=== PATIENT | female | born 1980 | race Two or more races ===

== ENCOUNTER 2020-10-26 08:59 | Outpatient (REF) | payer MEDICAID, OTHER, SELFPAY ==
--- NOTE | 2020-10-26 09:03 | EMG_ITS ---
Bilateral median and ulnar motor and sensory studies were performed. Bilateral radial sensory studies were performed and paraspinal muscles were tested with a needle. IMPRESSION: Lyko-lv-nyzalegl bilateral median neuropathy across carpal tunnel. MD JOHN Soliz/EL / [id number]
== END 2020-10-26 09:00 | disposition home or self-care (01) ==
LOC: HO.NEURO 08:59
PROVIDERS: PCP Internal Medicine Geriatric Medicine; Visit Provider Emergency Medicine
DX: M79.642 Pain in left hand (principal); M79.641 Pain in right hand; G56.03 Carpal tunnel syndrome, bilateral upper limbs
CPT/HCPCS: 95860; 95886; 95911

== ENCOUNTER → 2020-11-13 10:26 | Outpatient (BNVA) | payer OTHER, SELFPAY | PROVIDERS: PCP Internal Medicine Geriatric Medicine; Visit Provider Physician Assistant | DX: Z76.89 Persons encountering health services in other specified circumstances (principal) ==

== ENCOUNTER → 2020-11-14 08:08 | Outpatient (BNVA) | payer OTHER, SELFPAY | PROVIDERS: PCP Internal Medicine Geriatric Medicine; Visit Provider Physician Assistant | DX: Z76.89 Persons encountering health services in other specified circumstances (principal) ==

== ENCOUNTER 2020-11-15 | Outpatient (REF) | payer OTHER, SELFPAY | END 2020-11-15 00:01 | LOC: CF | PROVIDERS: PCP Internal Medicine Geriatric Medicine; Visit Provider Orthopaedic Surgery | DX: G56.03 Carpal tunnel syndrome, bilateral upper limbs (principal) | CPT/HCPCS: 99202 ==

== ENCOUNTER 2020-12-15 10:26 | Outpatient (REF) | payer MEDICAID, OTHER, SELFPAY ==
--- NOTE | 2020-12-15 11:45 | US_ITS ---
EXAMINATION: MM DIAGNOSTIC DIGITAL BREAST TOMOSYNTHESIS, BILATERAL US DIAGNOSTIC ULTRASOUND BREAST, BILATERAL CLINICAL INFORMATION: Probable bilateral benign calcifications for follow-up surveillance. Patient notes bilateral pain upper breasts. No palpable mass. Due for yearly. The lifetime risk of breast cancer based on the Tyrer-Cuzick Model is 9%. COMPARISON: Mammography: 01/03/2020, 06/29/2019, 01/08/2019, 12/30/2018 (BI-RADS 0). TECHNIQUE: Digital breast tomosynthesis is performed in both the craniocaudal and mediolateral oblique views along with computer-aided detection (CAD). Synthesized 2D images are generated from the tomosynthesis. Additional bilateral magnification CC and bilateral magnification ML views are obtained. Ultrasound ultrasound of each breast is targeted to the upper breast in the area of patient symptoms. Trace scale imaging and color Doppler are performed without and with harmonics. FINDINGS: The breasts are heterogeneously dense, which may obscure small masses (ACR BI-RADS breast composition Category c). Breast tissue composition borders on extremely dense. Scattered bilateral calcifications are stable from prior diagnostic exams and now considered benign. There are no increasing calcifications or interval pleomorphic types or ductal distribution. There is no interval mass or architectural abnormality. No skin thickening or coarsening of the Manan's ligaments. The axilla are unremarkable. Ultrasound bilateral breasts targeted to the upper breast in the area of clinical symptoms demonstrates no cystic or solid mass. There is no architectural abnormality, focal duct ectasia, or edema tracking in soft tissue planes. No skin thickening. Results are discussed with the patient at time of visit with assistance of an cleaning porter. Mammography follow-up interval discussed with patient. Patient prefers to remain on schedule with next mammogram in one year. US/US breast LT limited IMPRESSION: 1. No mammographic evidence of malignancy or inflammatory changes. 2. Bilateral breast calcifications from prior diagnostic studies, now considered benign. 3. Unremarkable bilateral targeted breast ultrasound. ASSESSMENT: BI-RADS 2: Benign RECOMMENDATION: 1. Patient's bilateral breast pain should be managed based on the clinical impression. 2. Otherwise, routine annual screening mammography. This patient's information was entered into a reminder system with a target due date for their next mammogram.
--- NOTE | 2020-12-15 11:55 | US_ITS ---
EXAMINATION: MM DIAGNOSTIC DIGITAL BREAST TOMOSYNTHESIS, BILATERAL US DIAGNOSTIC ULTRASOUND BREAST, BILATERAL CLINICAL INFORMATION: Probable bilateral benign calcifications for follow-up surveillance. Patient notes bilateral pain upper breasts. No palpable mass. Due for yearly. The lifetime risk of breast cancer based on the Tyrer-Cuzick Model is 9%. COMPARISON: Mammography: 01/03/2020, 06/29/2019, 01/08/2019, 12/30/2018 (BI-RADS 0). TECHNIQUE: Digital breast tomosynthesis is performed in both the craniocaudal and mediolateral oblique views along with computer-aided detection (CAD). Synthesized 2D images are generated from the tomosynthesis. Additional bilateral magnification CC and bilateral magnification ML views are obtained. Ultrasound ultrasound of each breast is targeted to the upper breast in the area of patient symptoms. Trace scale imaging and color Doppler are performed without and with harmonics. FINDINGS: The breasts are heterogeneously dense, which may obscure small masses (ACR BI-RADS breast composition Category c). Breast tissue composition borders on extremely dense. Scattered bilateral calcifications are stable from prior diagnostic exams and now considered benign. There are no increasing calcifications or interval pleomorphic types or ductal distribution. There is no interval mass or architectural abnormality. No skin thickening or coarsening of the Manan's ligaments. The axilla are unremarkable. Ultrasound bilateral breasts targeted to the upper breast in the area of clinical symptoms demonstrates no cystic or solid mass. There is no architectural abnormality, focal duct ectasia, or edema tracking in soft tissue planes. No skin thickening. Results are discussed with the patient at time of visit with assistance of an foreign language interpreter. Mammography follow-up interval discussed with patient. Patient prefers to remain on schedule with next mammogram in one year. US/US breast RT limited IMPRESSION: 1. No mammographic evidence of malignancy or inflammatory changes. 2. Bilateral breast calcifications from prior diagnostic studies, now considered benign. 3. Unremarkable bilateral targeted breast ultrasound. ASSESSMENT: BI-RADS 2: Benign RECOMMENDATION: 1. Patient's bilateral breast pain should be managed based on the clinical impression. 2. Otherwise, routine annual screening mammography. This patient's information was entered into a reminder system with a target due date for their next mammogram.
--- NOTE | 2020-12-15 12:30 | MM_ITS ---
EXAMINATION: MM DIAGNOSTIC DIGITAL BREAST TOMOSYNTHESIS, BILATERAL US DIAGNOSTIC ULTRASOUND BREAST, BILATERAL CLINICAL INFORMATION: Probable bilateral benign calcifications for follow-up surveillance. Patient notes bilateral pain upper breasts. No palpable mass. Due for yearly. The lifetime risk of breast cancer based on the Tyrer-Cuzick Model is 9%. COMPARISON: Mammography: 01/03/2020, 06/29/2019, 01/08/2019, 12/30/2018 (BI-RADS 0). TECHNIQUE: Digital breast tomosynthesis is performed in both the craniocaudal and mediolateral oblique views along with computer-aided detection (CAD). Synthesized 2D images are generated from the tomosynthesis. Additional bilateral magnification CC and bilateral magnification ML views are obtained. Ultrasound ultrasound of each breast is targeted to the upper breast in the area of patient symptoms. Trace scale imaging and color Doppler are performed without and with harmonics. FINDINGS: The breasts are heterogeneously dense, which may obscure small masses (ACR BI-RADS breast composition Category c). Breast tissue composition borders on extremely dense. Scattered bilateral calcifications are stable from prior diagnostic exams and now considered benign. There are no increasing calcifications or interval pleomorphic types or ductal distribution. There is no interval mass or architectural abnormality. No skin thickening or coarsening of the Manan's ligaments. The axilla are unremarkable. Ultrasound bilateral breasts targeted to the upper breast in the area of clinical symptoms demonstrates no cystic or solid mass. There is no architectural abnormality, focal duct ectasia, or edema tracking in soft tissue planes. No skin thickening. Results are discussed with the patient at time of visit with assistance of an vocational case manager. Mammography follow-up interval discussed with patient. Patient prefers to remain on schedule with next mammogram in one year. MM/MM tomosynthesis diagnostic BI IMPRESSION: 1. No mammographic evidence of malignancy or inflammatory changes. 2. Bilateral breast calcifications from prior diagnostic studies, now considered benign. 3. Unremarkable bilateral targeted breast ultrasound. ASSESSMENT: BI-RADS 2: Benign RECOMMENDATION: 1. Patient's bilateral breast pain should be managed based on the clinical impression. 2. Otherwise, routine annual screening mammography. This patient's information was entered into a reminder system with a target due date for their next mammogram.
== END 2020-12-15 10:27 | disposition home or self-care (01) ==
LOC: HO.MAMMO 10:26
PROVIDERS: PCP Internal Medicine Geriatric Medicine; Visit Provider Emergency Medicine
DX: N64.4 Mastodynia (principal); R92.1 Mammographic calcification found on diagnostic imaging of breast
CPT/HCPCS: 76642; 77062; 77066

== ENCOUNTER 2021-10-04 11:13 | Outpatient (REF) | payer OTHER, SELFPAY ==
[2021-10-05 14:34] LABS: CT PCR NOT DETECTED (Not Detect.); NG PCR NOT DETECTED (Not Detect.)
[2021-10-06 12:02] LABS: BV Int Neg Control Negative (Negative); BV Int Pos Control Positive (Positive)
== END 2021-10-04 11:14 | disposition home or self-care (01) ==
LOC: HO.LAB 11:13
PROVIDERS: Visit Provider Advanced Practice Midwife
DX: Z01.419 Encounter for gynecological examination (general) (routine) without abnormal findings (principal); Z20.2 Contact with and (suspected) exposure to infections with a predominantly sexual mode of transmission
CPT/HCPCS: 87480; 87491; 87510; 87591; 87660

== ENCOUNTER 2021-12-11 14:09 | Outpatient (REF) | payer OTHER, SELFPAY ==
--- NOTE | ~2021-12-11 | MM_ITS ---
EXAMINATION: MM SCREENING DIGITAL BREAST TOMOSYNTHESIS, BILATERAL CLINICAL INFORMATION: Screening. Asymptomatic. The lifetime risk of breast cancer based on the Tyrer-Cuzick Model is 12%. COMPARISON: Mammography: 12/15/2020, 02/01/2020, 06/29/2019, 01/08/2019, 12/30/2018, bilateral breast ultrasound 12/15/2020. TECHNIQUE: Digital breast tomosynthesis is performed in both the craniocaudal and mediolateral oblique views along with computer-aided detection (CAD). Synthesized 2D images are generated from the tomosynthesis. FINDINGS: The breasts are heterogeneously dense, which may obscure small masses (ACR BI-RADS breast composition Category c). There are no significant masses, abnormal calcifications, or other abnormalities. Breast tissue composition borders on extremely dense. There is no developing density or significant changes. MM/MM tomosynthesis screening BI IMPRESSION: No mammographic evidence of malignancy. ASSESSMENT: BI-RADS 1: Negative RECOMMENDATION: Routine annual mammography screening. This patient's information was entered into a reminder system with a target due date for their next mammogram.
== END 2021-12-11 14:10 | disposition home or self-care (01) ==
LOC: HO.MAMMO 14:09
PROVIDERS: Visit Provider Internal Medicine Geriatric Medicine
DX: Z12.31 Encounter for screening mammogram for malignant neoplasm of breast (principal)
CPT/HCPCS: 77063; 77067

== ENCOUNTER 2022-05-01 13:12 | Outpatient (REF) | payer OTHER, SELFPAY ==
--- NOTE | ~2022-05-01 | US_ITS ---
EXAMINATION: US PELVIS CLINICAL INFORMATION: Excessive and frequent menstruation. COMPARISON: None. TECHNIQUE: Ultrasound of the pelvis is performed using both transabdominal and transvaginal transducers along with Doppler. Transvaginal imaging is performed due to inadequate visualization transabdominally. FINDINGS: Uterus: The uterus is anteverted, anteflexed and measures 8.4 cm in length, 3.7 cm in AP and 3.9 cm in transverse dimension. The double wall endometrial thickness is 1.2 cm. The uterus is smooth in contour and has normal myometrial echogenicity. There is a hypoechoic lesion in the fundal uterus measuring 1.8 x 2.1 x 2.0 cm suggestive of a small fibroid. Adnexa: Both ovaries are visualized. There is normal color flow to the adnexa. There is no ovarian torsion. There is no pelvic ascites or fluid collection. Right ovary measures 4.0 x 2.0 x 2.9 cm and volume 12.1 mL. There is hypoechoic lesion right ovary measuring 2.0 x 1.0 x 1.5 cm suggestive of corpus luteal cyst versus artifact. Left ovary measures 2.4 x 1.3 x 1.7 cm and volume 2.8 mL. Previously left ovary measured 3.2 x 2.0 x 2.6 cm. There is no free fluid in the cul-de-sac. US/US pelvic and transvaginal IMPRESSION: Small fundal uterine fibroid. Likely small corpus luteal cyst right ovary versus artifact. No free fluid in cul-de-sac.
== END 2022-05-01 13:13 | disposition home or self-care (01) ==
LOC: HO.US 13:12
PROVIDERS: PCP Internal Medicine Geriatric Medicine; Visit Provider Advanced Practice Midwife
DX: N92.1 Excessive and frequent menstruation with irregular cycle (principal)
CPT/HCPCS: 76830; 76856

== ENCOUNTER 2022-12-17 13:30 | Outpatient (REF) | payer OTHER, SELFPAY ==
--- NOTE | ~2022-12-17 | MM_ITS ---
EXAMINATION: MM SCREENING DIGITAL BREAST TOMOSYNTHESIS, BILATERAL CLINICAL INFORMATION: Screening. Asymptomatic. The lifetime risk of breast cancer based on the Tyrer-Cuzick Model is 4%. COMPARISON: Mammography: December 11, 2021 and studies dating back to March 01, 2016 TECHNIQUE: Digital breast tomosynthesis is performed in both the craniocaudal and mediolateral oblique views along with computer-aided detection (CAD). Synthesized 2D images are generated from the tomosynthesis. Additional bilateral exaggerated craniocaudal views performed. FINDINGS: The breasts are extremely dense, which lowers the sensitivity of mammography (ACR BI-RADS breast composition Category d). There are no significant masses, abnormal calcifications, or other abnormalities. MM/MM tomosynthesis screening BI IMPRESSION: No significant changes from prior exam. ASSESSMENT: BI-RADS 1: Negative RECOMMENDATION: Routine annual mammography screening. This patient's information was entered into a reminder system with a target due date for their next mammogram.
== END 2022-12-17 13:31 | disposition home or self-care (01) ==
LOC: HO.MAMMO 13:30
PROVIDERS: PCP Internal Medicine Geriatric Medicine; Visit Provider Internal Medicine Geriatric Medicine
DX: Z12.31 Encounter for screening mammogram for malignant neoplasm of breast (principal)
CPT/HCPCS: 77063; 77067

== ENCOUNTER 2024-01-24 09:53 | Outpatient (REF) | payer OTHER, SELFPAY ==
--- NOTE | ~2024-01-24 | MM_ITS ---
EXAMINATION: MM SCREENING DIGITAL BREAST TOMOSYNTHESIS, BILATERAL CLINICAL INFORMATION: Screening. Asymptomatic. The patient reports a benign left excisional biopsy to place 2010. COMPARISON: Mammography: This study is compared with prior exams dating back to 2019. TECHNIQUE: Digital breast tomosynthesis is performed in both the craniocaudal and mediolateral oblique views along with computer-aided detection (CAD). Synthesized 2D images are generated from the tomosynthesis. FINDINGS: The breasts are extremely dense, which lowers the sensitivity of mammography (ACR BI-RADS breast composition Category d). In the superior aspect of the left breast, at a middle depth, there is an asymmetry which warrants additional mammographic and targeted sonographic imaging. When the patient returns for the additional mammographic imaging, skin of the right breast should be closely inspected from the scars. The patient does give a history of contralateral left breast surgery, it may be that the prior surgery has occurred in the right breast and not the left breast. In the left breast, there are no significant masses, abnormal calcifications, or other abnormalities. MM/MM tomosynthesis screening BI IMPRESSION: Asymmetry of the right breast warrants additional mammographic and targeted sonographic evaluation. When the patient returns for the additional mammographic imaging, skin of the right breast should be closely inspected from the scars. The patient does give a history of contralateral left breast surgery, it may be that the prior surgery has occurred in the right breast and not the left breast. Nonetheless, all additional imaging of the right breast should occur with any scars found marked. No mammographic signs of malignancy left breast. ASSESSMENT: BI-RADS BI-RADS 0 - Incomplete: Needs additional Imaging. RECOMMENDATION: 1. Additional views of the right breast 2. Targeted ultrasound if warranted after review of the additional views. 3. Radiology department staff will contact the patient for additional imaging. Additional Imaging required This examination should not preclude the clinical evaluation of a suspicious palpable abnormality. This patient's information was entered into a reminder system with a target due date for their next mammogram.
== END 2024-01-24 09:54 | disposition home or self-care (01) ==
LOC: HO.MAMMO 09:53
PROVIDERS: Visit Provider Internal Medicine Geriatric Medicine
DX: Z12.31 Encounter for screening mammogram for malignant neoplasm of breast (principal)
CPT/HCPCS: 77063; 77067

== ENCOUNTER → 2024-01-24 10:30 | Outpatient (BNV) | payer OTHER, SELFPAY | PROVIDERS: Visit Provider Radiology Diagnostic Radiology | DX: Z12.31 Encounter for screening mammogram for malignant neoplasm of breast (principal) | CPT/HCPCS: 77063; 77067 ==

== ENCOUNTER 2024-02-02 12:48 | Outpatient (RCR) | payer OTHER, SELFPAY ==
--- NOTE | 2024-03-10 14:11 | MHC.SP.ADU ---
Referring provider: Dr. Salud Wilson Reason for Referral: dx: hoarseness Type of Treatment: 11891 Evaluation of Speech Sound Production Date of Plan of Treatment: 02/02/24 Onset of Symptoms/Illness: 02/02/24 Date Treatment Started: 11/24/22 Medical Diagnosis: Hoarseness Primary Speech Language Diagnosis: R49.0 Dysphonia History Logan is a Kiswahili speaking 43 year old female referred for speech therapy by Salud Wilson MD, with [facility] with a diagnosis of hoarseness. She was seen for today?s evaluation on 02/02/2024 by a bilingual Speech-Language Pathologist with additional assistance from an biological science technician fish. The biological science technician fish was present during the entire evaluation, providing support during the patient interview, questionnaires, and throughout testing. Logan reports that she has been seen by an ENT, Dr. Salud Wilson. In September 2023, the ENT visualized nodules which have disappeared on a more recent ENT instrumental examination. She presents to today?s evaluation with concern for a hoarse and raspy vocal quality. She reports that she typically speaks in a loud voice and she often feels like she is ?forcing? her voice. She presents with a moderately hoarse voice during the evaluation, which she reports as her typical vocal quality. She reports that there are times when her vocal quality worsens, for example when she is tired. Logan reports no concern for her voice affecting her socially. Logan reports a history of voice therapy with a Speech-Language Pathologist. Over 20 years ago she was seen for voice therapy following removal of her tonsils. Medical History: Respiratory Needs: Room Air Patient Orientation: Alert & Oriented x 4 Social History: Past Speech Language Therapy: Voice therapy following removal of tonsils approximately 20 years ago Swallowing History: Dysphagia Specific: No reported swallowing concerns Reported Speech, Language, Cognition difficulties: Voice Assessment: Logan?s vocal quality as well as her perception of her voice was analyzed during today?s evaluation through measures including patient interview, questionnaires, conversation samples, and vocal exercises. Voice-Related Quality of Life (V-RQOL) Measure The V-RQOL is a questionnaire completed by an individual to analyze their outlook on their voice problem as it relates to their daily activities and overall quality of life. There are ten statements to which an individual subscribes a score to each from 1 to 5 (1=not a problem, 5=?as bad as it can be?) to describe how much of a problem that particular statement has been within the past two weeks. Logan responded 1 to the vast majority of statements. She responded 3 (moderate) to ?I have trouble speaking loudly or being heard in noisy situations? and 2 (a small amount) to ?I run out of air and need to take frequent breaths when talking.? Logan scored 13 on the questionnaire, which is considered ?excellent? and indicates minimal negative effect on one?s quality of life. Voice Handicap Index (VHI) The VHI is a questionnaire in which an individual answers questions regarding functional, emotional, and physical components of their voice to provide insight into their perception of their own voice. Functional questions provide insight into the impact of their voice on daily activities; i.e. ?I speak with friends, neighbors, or relatives less often because of my voice.? Emotional questions provide insight into the individual?s feelings regarding their voice; i.e. ?My voice problem upsets me.? Physical questions provide insight into the individual?s physical discomfort and characteristics of voice; i.e. ?I use a great deal of effort to speak.? Responses to questions include never, almost never, sometimes, almost always, and always. Logan?s Z-score value was computed to be +0.48. A score of 0 to +1.00 is interpreted as ?no significant impact on aspects of daily life.? S:Z Ratio The S:Z Ratio is not diagnostic of laryngeal pathology: it is merely a measurement of one?s ability to sustain the voiceless sound [S] in comparison to sustaining the voiced sound [Z] cognate. For the majority of people with no difficulties affecting their vocal folds are typically able to sustain both the voiceless [S] and voiced [Z] sounds for approximately the same length of time during the S:Z task, thus producing a 1:1 ratio. 95% of people who have some difficulty affecting the movement or vibration of their vocal folds have an S:Z ratio of greater than 1.40. Conversely, a S:Z ratio of less than 1.0 suggests functional dysphonia in the absence of laryngeal pathology (Evans & Morgan, 1981). Across three trials, Logan produced the following on the S:Z prolongation averages: S = 9.53 seconds Z = 9.54 seconds Ratio: 1.00 Norms: Mean S= 17.7 seconds (Standard deviation = 7.6 seconds); Mean Z=18.6 seconds (Standard deviation = 7.0 seconds) (Evans & Morgan 1981 in Anthony et. al. 1987) Logan?s S:Z ratio is deemed to be within normal limits. However, the length of her [S] and [Z] sounds are shorter than normative data of mixed ages and genders. Maximum Phonation Time (MPT): [a] prolongation: range: 5.92-9.75 seconds, mean = 7.22 seconds When prompted to produce a prolonged ?AHH? ([a] prolongation), [place] presented with several moments of strained vocal quality and presented with worsening of hoarseness following vowel prolongation. Compared to normative data of adult females, Logan?s maximum phonation time of [a] (?AHH?) is over 3X less. [place] produced a maximum phonation time of 7.22 seconds as compared to the average time of 25.7 seconds (Anthony et. al., 1987). Impressions and Recommendations SUMMARY: Logan presents with a moderately hoarse voice during today?s evaluation and shortened phonation length across tasks. [place]?s prolongations of various sounds are shorter as compared to normative data; this may be due to a decrease in respiratory efficiency. It is recommended that Mey[place] attend voice therapy to target vocal hygiene education, hoarse vocal quality, and respiration efficiency. Impact on Daily Function/Activity Limitations: Daily Activities: Moderate Interpersonal Interactions: Moderate Employment: Mild Prognosis for Improvement: Good Recommendation for Speech Therapy: Outpatient Speech Therapy 1x/week x 12 weeks. The following goals are recommended: - [place] will independently recall 3+ environmental modifications to improve vocal hygiene. -When given a scenario, Logan will independently discriminate between healthy vocal use and vocal misuse/abuse with 80% accuracy -[place] will sustain vowel prolongation for 15 seconds in 80% of opportunities -Logan will accurately demonstrate diaphragmatic breathing in 100% of trials with moderate cueing. Patient Education Completed: Yes Patient/Caregiver Education: Described Results of Evaluation Patient expressed understanding of evaluation Patient requires further education on strategies Maintenance Advisor Clinican/Clinical Fellow: No Supervisory Statement: N/A Speech Language Pathologist: Maura Mullins M.A., CCC-MECHANICAL STRIPER
== END 2024-08-26 08:45 | disposition still patient (30) ==
LOC: HO.SH 12:48
PROVIDERS: Visit Provider Otolaryngology
DX: R49.0 Dysphonia (principal)

== ENCOUNTER 2024-02-11 14:23 | Outpatient (REF) | payer OTHER, SELFPAY ==
--- NOTE | ~2024-02-11 | MM_ITS ---
EXAMINATION: MM DIAGNOSTIC DIGITAL BREAST TOMOSYNTHESIS, RIGHT CLINICAL INFORMATION: Follow-up for asymmetry in the mid right breast seen only on MLO projection. Patient has history of excisional biopsies in both breasts. COMPARISON: Mammography: 01/24/2024, 12/17/2022, 12/11/2021, 12/15/2020. TECHNIQUE: Digital breast tomosynthesis is performed. 2D images are generated from the tomosynthesis. The following views are obtained: Full-field right mediolateral view was obtained, spot compression right MLO and cc views. FINDINGS: The breasts are extremely dense, which lowers the sensitivity of mammography (ACR BI-RADS breast composition Category d). Additional views demonstrate no persistent area of architectural distortion or asymmetry. Previously seen findings appear likely related to expected mild scarring from prior excisional biopsy in this region. No masses, abnormal calcifications, or persistent regions of architectural distortion. MM/MM tomosynthesis added views R IMPRESSION: No persistent abnormality suspicious for malignancy. Benign findings. Recommend the patient resume routine annual screening mammography to include both breasts. ASSESSMENT: BI-RADS BI-RADS 2 - Benign Findings RECOMMENDATION: 1 year F/U Results were provided to the patient at time of visit by the technologist. This patient's information was entered into a reminder system with a target due date for their next mammogram.
== END 2024-02-11 14:24 | disposition home or self-care (01) ==
LOC: HO.MAMMO 14:23
PROVIDERS: PCP Internal Medicine Geriatric Medicine; Visit Provider Internal Medicine Geriatric Medicine
DX: N64.89 Other specified disorders of breast (principal)
CPT/HCPCS: 77061; 77065

== ENCOUNTER → 2024-02-11 14:30 | Outpatient (BNV) | payer OTHER, SELFPAY | PROVIDERS: PCP Internal Medicine Geriatric Medicine; Visit Provider Radiology Diagnostic Radiology | DX: R92.8 Other abnormal and inconclusive findings on diagnostic imaging of breast (principal) | CPT/HCPCS: 77061; 77065 ==

== ENCOUNTER 2024-03-04 07:48 | Outpatient (REF) | payer OTHER, SELFPAY ==
[2024-03-11 23:29] LABS: HPV mRNA E6/E7 rflx Not Detected (Not Detected)
== END 2024-03-04 07:49 | disposition home or self-care (01) ==
LOC: HO.LNP 07:48
PROVIDERS: Visit Provider Advanced Practice Midwife
DX: Z12.4 Encounter for screening for malignant neoplasm of cervix (principal); Z11.51 Encounter for screening for human papillomavirus (HPV)
CPT/HCPCS: 87624; 88142

== ENCOUNTER 2024-06-23 12:10 | Outpatient (REF) | payer OTHER, SELFPAY ==
[2024-06-23 13:07] LABS: MANUAL DIFF FLAG NO
[2024-06-23 13:27] LABS: Basophils Percent Auto 0.6 % (0-2); Eosinophils Absolute Auto 0.1 X10*3/uL (0.0-0.4); Eosinophils Percent Auto 1.3 % (0-4); Hematocrit 38.7 % (37.0-47.0); Hemoglobin 12.2 g/dl (12.0-16.0); Imm Gran Abs Auto 0.02 X10*3/uL (0.00-0.03); Imm Gran Pct Auto 0.3 % (0.0-0.4); Lymphocytes Absolute Auto 2.7 X10*3/uL (1.2-4.9); Lymphocytes Percent Auto 39.6 % (20-40); Mean Corpuscular HGB Conc 31.5 g/dl (31.0-35.0); Mean Corpuscular Hemoglobin 27.4 pg (27.0-33.0); Mean Corpuscular Volume 86.8 fL (80.0-98.0); Mean Platelet Volume 10.6 fL (9.4-12.3); Monocytes Absolute Auto 0.5 X10*3/uL (0.1-1.2); Monocytes Percent Auto 7.6 % (2-11); Neutrophils Absolute Auto 3.4 x10*3/uL (2.0-8.3); Neutrophils Percent Auto 50.6 % (45-73); Platelet Count 281 X10*3/uL (160-400); Red Blood Count 4.46 X10*6/uL (4.20-5.50); Red Cell Distribution Width 13.6 % (11.0-16.0); White Blood Count 6.7 X10*3/uL (4.8-10.8)
[2024-06-26 00:39] LABS: TS Negative Control Passed; TS Panel A 0; TS Panel B 1; TS Positive Control Passed; TSpotTB Negative (Negative)
== END 2024-06-23 12:11 | disposition home or self-care (01) ==
LOC: HO.HHCL 12:10
PROVIDERS: Visit Provider Internal Medicine Geriatric Medicine
DX: R04.0 Epistaxis (principal); Z11.1 Encounter for screening for respiratory tuberculosis
CPT/HCPCS: 36415; 85025; 86481

== ENCOUNTER → 2025-01-28 10:00 | Outpatient (BNV) | payer OTHER, SELFPAY | PROVIDERS: PCP Internal Medicine Geriatric Medicine; Visit Provider Internal Medicine | DX: Z12.31 Encounter for screening mammogram for malignant neoplasm of breast (principal) | CPT/HCPCS: 77063; 77067 ==

== ENCOUNTER 2025-01-28 10:03 | Outpatient (REF) | payer OTHER, SELFPAY ==
--- OUTSIDE RECORDS SUMMARY | 2025-01-28 11:12 | XMS_ITS | Encounter Summary ---
Author Organization [employer] Address [address] [facility] 7[address] [place] [address] Care Team Providers Care Technical Operator Name Role Phone Name, Eleazar LEON Primary Care Provider Encounter Details Date Type Department Care Team ([facility] st Contact Info) Description 09/26/2023 Orders Only [facility] [address] [place], [place] [id number] Cyn Ugarte FNP [address] [place] [address] Social History Tobacco Use Types Packs/Day Years Used Date Smoking Tobacco: Never Smokeless Tobacco: Never Alcohol Use Standard Drinks/Week Comments Defer 0 (1 standard drink = 0.6 oz pur e alcohol) Depression Answer Date Recorded Patient Health Questionnaire-9 Score 5 03/31/2023 Housing Stability Answer Date Recorded What is your housing situation today? I have chelita fajardo 09/12/[address] you li ve. Do you have problems with any of the following? None of the above 09/12/2023 Food Insecurity Answer Date Recorded Within the past 12 months, y ou worried that your food would run out before you got money to buy more: Never True 09/12/2023 Within the past 12 months,th e food you bought just didn't last and you didn't have enough money to get more: Never True Transportation Answer Date Recorded In the past 12 months, has l ack of transportation kept you from medical appts, meetings, work or from getting things needed for daily living? No 09/12/2023 Utilities Answer Date Recorded In the past 12 months, has t he electric, gas, oil or water company threatened to shut off services in your home? Yes 08/31/2023 Depression Answer Date Recorded Patient Health Questionnaire-2 Score 2 03/31/2023 Comments Unknown Sex and Gender Information Value Date Recorded Sex Assigned at Female 09/23/2022 10:29 AM EDT Legal Sex Female 10:29 AM EDT Gender Identity Female 09/23/2022 10:29 AM EDT Sexual Orientation Lesbian or Swanson 09/23/2022 10 :29 AM EDT documented as of this encounter Plan of Treatment Upcoming Encounters Date Type Department Care Team (Late st Contact Info) Description 01/28/2025 11:15 AM EST Office Visit [facility] [address] [place] [phone] NameEleazar MD [address] [place] [address] Arrived 03/07/2025 9:15 AM EDT Office Visit [address] [address] Dinora Blandon CNM [address] [place] [phone] documented as of this encounter Visit Diagnoses Not on filedocumented in this encounter Additional Health Concerns Assessment Noted Time PHQ-9 Depression Total Score: 5 03/31/20 23 11:26 AM EDT documented as of this encounter Care Teams Technical Operator Relationship Specialty Start Date End Date Eleazar Cee MD [address] [place] [phone] PCP - General Family Medicine 11/24/18 documented as of this encounter
--- OUTSIDE RECORDS SUMMARY | 2025-01-28 11:12 | XMS_ITS | Encounter Summary ---
Author Organization [employer] [facility] Address [address] [place] [address] 7 [place] [address] Care Team Providers Care Publishing Editor Name Role Phone Name, Eleazar LEON Primary Care Provider Encounter Details Date Type Department Care Team (Latest Contact Info) Description 12/30/2018 Abstract [facility] CONVERSION[facility] Dental, Provider, DDS Social History Tobacco Use Types Packs/Day Years Used Date Smoking Tobacco: Never Assessed Comments Unknown Sex and Gender Information Value Date Recorded Sex Assigned at Female 09/23/2022 10:29 AM EDT Legal Sex Female 10:29 AM EDT Gender Identity Female 09/23/2022 10:29 AM EDT Sexual Orientation Lesbian or Swanson 09/23/2022 10 :29 AM EDT documented as of this encounter Plan of Treatment Upcoming Encounters Date Type Department Care Team ( st Contact Info) Description 01/28/2025 11:15 AM EST Office Visit [facility] [address] [place] [phone] Name, MD Eleazar [address] [place] [phone] Arrived 03/07/2025 9:15 AM EDT Office Visit [facility] [address] [place] [address] Dinora Blandon [address] [address] documented as of this encounter Visit Diagnoses Not on filedocumented in this encounter Care Teams Publishing Editor Relationship Specialty Start Date End Date Name, MD Eleazar [address] [place] [address] PCP - General Family Medicine 11/24/18 documented as of this encounter
--- OUTSIDE RECORDS SUMMARY | 2025-01-28 11:12 | XMS_ITS | Encounter Summary ---
Author Organization [employer] Address [address] [place] [address] 7 [place] [address] Care Team Providers Care Auto Seat Cover Installer Name Role Phone Name, Eleazar LEON Primary Care Provider [phone] Reason for Visit * Reason Onset Date Comments Medication Question 03/31/2023 Encounter Details Date Type Department Care Team ([facility] st Contact Info) Description 03/31/2023 Telephone [facility] [address] [place] [address] [phone] Name, MD Eleazar [address] [place] [address] Medication Question Social History Tobacco Use Types Packs/Day Years Used Date Smoking Tobacco: Never Smokeless Tobacco: Never Alcohol Use Standard Drinks/Week Comments Defer 0 (1 standard drink = 0.6 oz pur e alcohol) Depression Answer Date Recorded Patient Health Questionnaire-9 Score 5 03/31/2023 Depression Answer Date Recorded Patient Health Questionnaire-2 Score 2 03/31/2023 Comments Unknown Sex and Gender Information Value Date Recorded Sex Assigned at Female 09/23/2022 10:29 AM EDT Legal Sex Female 10:29 AM EDT Gender Identity Female 09/23/2022 10:29 AM EDT Sexual Orientation Lesbian or Swanson 09/23/2022 10 :29 AM EDT COVID-19 Exposure Response Date Recorded In the last 10 days, have yo u been in contact with someone who was confirmed or suspected to have Coronavirus/COVID-19? No / Unsure 03/31/2023 11:04 AM EDT documented as of this encounter Miscellaneous Notes * Telephone Encounter - Concha Mckinnon RN - 03/31/2023 12:41 PM EDT Placed call to pharmacy regarding PCP message. Pharmacy given verbal to change to 28-0.8mg. * Telephone Encounter - Carley Ady Miller - 03/31/2023 11:49 AM EDT Tc from [facility] requesting a call to verify if medication ( multivitamin () 27-0.8 MG tablet ) can be switched to 28-0.8 mg due to pharmacy not having the 27-0.8 mg script previously sent over. Please contact Pharmacy at [phone] documented in this encounter Plan of Treatment Upcoming Encounters Date Type Department Care Team (Late st Contact Info) Description 01/28/2025 11:15 AM EST Office Visit [address] [address] Name, MD Eleazar [address] [place] [address] Arrived 03/07/2025 9:15 AM EDT Office Visit [address] [address] Dinora Blandon CNM [address] [place] [address] documented as of this encounter Visit Diagnoses Not on filedocumented in this encounter Additional Health Concerns Assessment Noted Time PHQ-9 Depression Total Score: 5 03/31/20 23 11:26 AM EDT documented as of this encounter Care Teams Auto Seat Cover Installer Relationship Specialty Start Date End Date Eleazar Cee MD [address] [place] [phone] PCP - General Family Medicine 11/24/18 documented as of this encounter
--- OUTSIDE RECORDS SUMMARY | 2025-01-28 11:12 | XMS_ITS | Encounter Summary ---
Author Organization [address] [facility] Address [address] [place] [address] 7 [place] [address] Care Team Providers Care Longitudinal Float Operator Name Role Phone Name, Eleazar LEON Primary Care Provider [phone] Encounter Details Date Type Department Care Team (Latest Contact Info) Description 01/03/2020 Abstract [facility] CONVERSIONS Dental, Provider, DDS Social History Tobacco [...] Description 01/28/2025 11:15 AM EST Office Visit [facility] [address] [place] [phone] Name, MD Eleazar [address] [place] [address] Arrived 03/07/2025 9:15 AM EDT Office Visit [facility] [address] [place] [address] Dinora Blandon [address] [address] documented as of this encounter Visit Diagnoses Not on filedocumented in this encounter Care Teams Longitudinal Float Operator Relationship Specialty Start Date End Date Name, MD Eleazar [address] [place] [address] PCP - General Family Medicine 11/24/18 documented as of this encounter
--- OUTSIDE RECORDS SUMMARY | 2025-01-28 11:12 | XMS_ITS | Clinical Summary ---
Author Organization [employer] Address [address] [place] [address] 7 [place] [address] Care Team Providers Care Doctor Of Chiropractic Name Role Phone Name, Eleazar LEON Primary Care Provider [phone] Allergies No known active allergies Medications * This document contains information received from the source organization and may not represent a complete record from that organization. multivitamin () 27-0.8 MG tablet Take 1 tablet by mouth in the morning. 30 tablet 3 Active Additional Information Patient not taking.Reported on 06/23/2024 cetirizine (ZyrTEC) 10 MG tablet Take 1 tablet (10 mg) by mouth in the morning. 30 tablet 4 03/10/20 25 Active omeprazole OTC (PriLOSEC OTC) 20 MG EC tablet Take 1 tablet (20 mg) by mouth before breakfast. Do not crush, chew, or split. 30 tablet 4 06/09/20 25 Active Active Problems Problem Noted Date Diagnosed Date Bereavement 03/04/2024 Assessment & Plan (03/10/2024 1:58 PM EDT): During IBH Consult Logan presenting with depressed mood, loss of interests/pleasure , changes in sleep difficulty falling asleep, trouble concentrating, thoughts of worthlessness or guilt, fatigue/loss of energy, inappropriate guilt , hopelessness and excessive worry/anxiety, difficulty controlling worry, easily fatigued, difficulty concentrating/Mind going blank , and irritability, extreme sadness when talking about her mom who 8 months ago; for a period of 18+ mo, for all symptoms in the context of family issues and relationship issues. Logan identified her long-term relationship as trigger for symptoms. Unhealthy communication patterns and lack of social supports also exacerbates symptoms. PLAN: (check all that apply) Continue with current services (defined as services in the past 12 months) . Patient is currently engaged in services for OP individual therapy with [facility]. Class 1 obesity 03/31/2023 Major depressive disorder 01/08/2023 Assessment & Plan (03/31/2024 1:02 PM EDT): During IBH Consult [place] presenting with depressed mood, loss of interests/pleasure , changes in sleep restless, unsatisfying sleep, change in appetite or weight overeating, psychomotor retardation, trouble concentrating, thoughts of worthlessness or guilt, fatigue/loss of energy, inappropriate guilt , hopelessness, worthlessness , difficulty concentrating; for a period of 24+ mo, in the context of family issues and relationship issues. Logan identified her long-term relationship as trigger for symptoms. Communication issues with significant other and lack of social supports also exacerbates symptoms. PLAN: (check all that apply) Continue with current services (defined as services in the past 12 months) . Pt will re-engaged with therapist and psych provider through [facility]. Pt was unhappy with previous therapist. Assessment & Plan (03/10/2024 1:58 PM EDT): During IBH Consult Logan presenting with depressed mood, loss of interests/pleasure , changes in sleep difficulty falling asleep, trouble concentrating, thoughts of worthlessness or guilt, fatigue/loss of energy, inappropriate guilt , hopelessness and excessive worry/anxiety, difficulty controlling worry, easily fatigued, difficulty concentrating/Mind going blank , and irritability, extreme sadness when talking about her mom who 8 months ago; for a period of 18+ mo, for all symptoms in the context of family issues and relationship issues. Logan identified her long-term relationship as trigger for symptoms. Unhealthy communication patterns and lack of social supports also exacerbates symptoms. PLAN: (check all that apply) Continue with current services (defined as services in the past 12 months) . Patient is currently engaged in services for OP individual therapy with [facility]. Insomnia 01/08/2023 Seasonal allergic rhinitis 05/07/2019 Irregular periods 05/07/2019 Resolved Problems Problem Noted Date Diagnosed Date Resolved Date Pain of breast 02/10/2019 01/08/2023 Encounters Date Type Department Care Team Description 01/28/2025 Travel 01/21/2025 Travel 01/06/2025 Travel from Last 3 Months Immunizations Name Administration Dates Next Due Influenza injectable quadriv alent IIV4 with preservative 02/01/2020 Influenza injectable quadriv alent preservative free 09/11/2023,09/15/2021,08/24/2020,2018,02/22/2016 Tdap 12/08/2018 Family History Medical History Relation Name Comments Hypertension Brother Hero Hypertension Father Sterling Verdin Arthritis Mother Melva brittny Asthma Mother Melva brittny Diabetes Mother Melva brittny Hypertension Mother Melva brittny Hypertension Sister Solsirys Relation Name Status Comments Brother Hero Father Sterling Verdin Mother Melva brittny Sister Solsirys Social History Tobacco Use Types Packs/Day Years Used Date Smoking Tobacco: Never Smokeless Tobacco: Never Tobacco Cessation:Counseling Given: Not Answered Comments:Fumo huka ocasionalmente Alcohol Use Standard Drinks/Week Comments Not Currently 0 (1 standard drink = 0.6 oz pur e alcohol) Social me johan un trago Depression Answer Date Recorded Patient Health Questionnaire-9 Score 12 03/31/2024 Patient Health Questionnaire-9 Score 12 03/31/2024 Last PHQ-9: Questionnaire Data Not on file 0 03/31/2024 Housing Stability Answer Date Recorded What is your housing situation today? I have chelita fajardo 06/23/[address] you li ve. Do you have problems with any of the following? None of the above 06/23/2024 Food Insecurity Answer Date Recorded Within the past 12 months, y ou worried that your food would run out before you got money to buy more: Never True 06/23/2024 Within the past 12 months,th e food you bought just didn't last and you didn't have enough money to get more: Never True Transportation Answer Date Recorded In the past 12 months, has l ack of transportation kept you from medical appts, meetings, work or from getting things needed for daily living? No 06/23/2024 Utilities Answer Date Recorded In the past 12 months, has t he electric, gas, oil or water company threatened to shut off services in your home? No 06/23/2024 Depression Answer Date Recorded Patient Health Questionnaire-2 Score 4 03/31/2024 Internet Access Answer Date Recorded Internet Access Q1 No 07/26/2024 Internet Access Q2 I do not want or need it 12/2023 Comments No Sex and Gender Information Value Date Recorded Sex Assigned at Female 09/23/2022 10:29 AM EDT Legal Sex Female 10:29 AM EDT Gender Identity Female 09/23/2022 10:29 AM EDT Sexual Orientation Lesbian or Swanson 09/23/2022 10 :29 AM EDT Last Filed Vital Signs Vital Sign Reading Time Taken Comments Blood Pressure 135/90 09/15/2024 11:49 AM EDT right arm 144/88 Pulse 87 09/15/2024 11:49 AM EDT Temperature 36.2 ??C (97.1 ??F) 06/23/2024 1 1:12 AM EDT Respiratory Rate 21 09/15/2024 11:4 9 AM EDT Oxygen Saturation 98% 09/15/2024 11: 49 AM EDT Inhaled Oxygen Concentration - - Weight 83 kg (183 lb) 09/15/2024 11:49 AM EDT Height 165.1 cm (5' 5 ) 06/23/2024 11:1 2 AM EDT Body Mass Index 30.45 06/23/2024 11:12 AM EDT Plan of Treatment Upcoming Encounters Date Type Department Care Team (Late st Contact Info) Description 01/28/2025 11:15 AM EST Office Visit [facility] [address] [place] [phone] Name, MD Eleazar [address] [place] [address] Arrived 03/07/2025 9:15 AM EDT Office Visit [facility] [address] [place] [phone] Michael Willoughby, FLORESITA [address] [place] [address] Health Maintenance Due Date Last Done Comments HIV Screening 1980 Hepatitis C Screening 2000 Hepatitis B Vaccines (1 of 3 - 19+ 3-dose series) 2001 COVID-19 Vaccine ( season) 2024 01/04/2022, 03/09/2021, 02/09/2021 Depression Monitoring (PHQ-9) 10/01/2024 03/31/2024, 03/31/2024 Family Planning (PISQ) 03/04/2025 03/04/2024 Depression Screening 03/31/2025 03/31/2024, 03/31/20 Alcohol/Substance Use Screening 06/23/2025 06/23/2024 SDOH Screening 06/23/2025 06/23/2024 Tobacco Screening 09/15/2025 09/15/2024 Mammogram 01/23/2026 01/24/2024, 11/25, 12/17/2022, Additional history exists Cervical Cancer Screening 03/04/2027 HPV/Cotest 03/04/2027 03/04/2024, 01/23, 01/21/2022, Additional history exists Pap Smear 03/04/2027 03/04/2024, 01/23, 01/21/2022 DTaP/Tdap/Td Vaccines (2 - Td or Tdap) 12/08/2028 12/08/2018 Zoster Vaccines (1 of 2) 2032 RSV Patients and Patients Aged 60 years or older (1 - 1-dose 75+ series) 2057 Influenza Vaccine Completed 09/01/2024, , 09/15/2021, Additional history exists HIB Vaccines Aged Out No longer eligi ble based on patient's age to complete this topic HPV Vaccines Aged Out No longer eligi ble based on patient's age to complete this topic Hepatitis A Vaccines Aged Out No long er eligible based on patient's age to complete this topic IPV Vaccines Aged Out No longer eligi ble based on patient's age to complete this topic Meningococcal Vaccine Aged Out No marshall tana eligible based on patient's age to complete this topic Pneumococcal Vaccine: Pediatrics (0 to 5 Years) and At-Risk Patients (6 to 49) Years) Aged Out No longer eligible based on patient's age to complete this topic RSV under 20 months Aged Out No longe r eligible based on patient's age to complete this topic Rotavirus Vaccines Aged Out No longer eligible based on patient's age to complete this topic Procedures Procedure Name Priority Date/Time Associated Diagnosis Comments HPV MRNA E6/E7 REFLEX TO HPV 16, 18/45 Routine 03/04/2024 2:03 PM EDT PAP SMEAR Routine 03/04/2024 2:03 PM EDT Cervical cancer screening BI MAMMOGRAM SCREENING TOMOSYNTHESIS BILATERAL Routine 01/24/2024 10:50 AM EST from Last 3 Months or Most Recently Relevant to Health Maintenance Results * HPV mRNA E6/E7 w/Reflex to HPV Genotypes 16, 18/45 (03/04/2024 2:03 PM EDT) HPV nRNA E6/E7 Not Detected Not Detected [facility] Comment:Methodology: Transcr iption-Mediated AmplificationThis assay detects E6/E7 viral messenger RNA (mRNA) from 14high-risk HPV types (16,18,31,33,35,39,45,51,52,56,58,59,66,68).Cervical sources are required for HPV testing.If a vaginal source from a patient who has had atotal hysterectomy with removal of cervix wassubmitted, please contact the testing laboratoryfor alternative testing options.For additional information, please refer [email or web address] [email or web address](This link if provided for information/educational purposes only.)THIS TEST WAS PERFORMED AT:[facility] [place] [phone] RAWLS MD HPV mRNA E6/E7 [facility] HPV 16 RNA [facility] HPV 18/45 RNA [facility] 03/04/2024 2:03 PM EDT 03/09/2024 12:00 PM EDT us Michael Willoughby CNM LAB CYTOLOGY ORDERABLES F inal Result [facility] [address] [place] [phone] * Pap Smear (03/04/2024 2:03 PM EDT) Swab Cervix uteri structure / Unknown 03/04/2024 2:03 PM EDT 03/09/2024 12:00 PM EDT Narrative [facility] - 03/22/2024 12:50 PM EDT ----- ------- Name: Logan Madison ? Age/Sex: 43/F ? : 1980 Unit#: [id number] ?? Attend Dr: MICHAEL WILLOUGHBY CNM ?Re03/04/24 ?Status: DEP REF ? Location: HO.LNP ?Disch: ? ----- ------- SPEC : [id number] ? RECD: 03/09/24-1200 ? STATUS: ??SOUT ? REQ NUM: [id number] ? VIKTOR: 03/04/24-1403 ? SUBM DR: MICHAEL WILLOUGHBY CNRadha ? ENTERED: ??03/09/24 ?SP TYPE: Pap Smr ?OTHR DR: ? ORDERED: ??Pap Smear ? Interpretation ?? Satisfactory for evaluation. ?? Negative for intraepithelial lesion or malignancy. ?HPV mRNA E6/E7: ?NOT DETECTED ? This assay detects E6/E7 viral messenger RNA (mRNA) from 14 high-risk HPV types (16, 18, ?? 31, 33, 35, 39, 45, 51, 52, 56, 58, 59, 66, 68) ?? HPV testing performed by [facility], [place], [place]. ??See reference laboratory ?? portion of the EMR for entire report. ?Clinical Information LMP: Unknown date Previous PAP test: Unknown date, Abnormal Other history: NIL/neg preceded by NIL/HPV pos ? Material Received ?? ThinPrep-Vaginal/Cervical ----- ------- Signed (signature on file) BRIAN Sanchez ([facility]) 03/22/24 1250 ? ----- ------- ? END OF REPORT ? us Michael Willoughby [facility] CYTOLOGY ORDERABLES F inal Result Performing Organization Address City/State/[facility] Co de Phone Number [facility] [address] [place] [address] [phone] * BI Mammogram Screening Tomosynthesis Bilateral (01/24/2024 10:50 AM EST) Anatomical Region Laterality Modality Breast Bilateral Mammography 01/24/2024 10:5 0 AM EST Narrative 02/05/2024 6:09 AM EDT ? [facility] ? [address] [facility] ?[place] [address] ? Mammography Report ? Signed ? Patient: Verdin Brittny,Logan ?MR#: ?? [id number] ? : 1980 ?Acct:[id number] ? Age/Sex: 43 / F ?ADM Date: 03/02/24 ? Loc: HO.MAMMO ? Attending Dr: Eleazar Cee MD ? Ordering Physician: Eleazar Cee MD ?Results: 0Incomplet ?? e: Needs Additional Imaging Evaluation ? Date of Service: 01/24/24 ?Follow Up: Additional Imagi ?? ng ? Procedure(s): MM tomosynthesis screening BI ?? Accession Number(s): [id number] ? cc: Jaye,Eleazar LEON ? EXAMINATION: ?? MM SCREENING DIGITAL BREAST TOMOSYNTHESIS, BILATERAL ? CLINICAL INFORMATION: ? Screening. Asymptomatic. ? The patient reports a benign left excisional biopsy to place 2010. ? COMPARISON: ?? Mammography: This study is compared with prior exams dating back to ?? 2018. ? TECHNIQUE: ?? Digital breast tomosynthesis is performed in both the craniocaudal and ?? mediolateral oblique views along with computer-aided detection (CAD). ?? Synthesized 2D images are generated from the tomosynthesis. ? FINDINGS: ?? The breasts are extremely dense, which lowers the sensitivity of ?? mammography (ACR BI-RADS breast composition Category d). ? In the superior aspect of the left breast, at a middle depth, there is ?? an asymmetry which warrants additional mammographic and targeted ?? sonographic imaging. ?? When the patient returns for the additional mammographic imaging, skin ?? of the right breast should be closely inspected from the scars. The ?? patient does give a history of contralateral left breast surgery, it ?? may be that the prior surgery has occurred in the right breast and not ?? the left breast. ? In the left breast, there are no significant masses, abnormal ?? calcifications, or other abnormalities. ? MM/MM tomosynthesis screening BI ?? IMPRESSION: ?? Asymmetry of the right breast warrants additional mammographic and ?? targeted sonographic evaluation. ?? When the patient returns for the additional mammographic imaging, ?? skin of the right breast should be closely inspected from the scars. ?? The patient does give a history of contralateral left breast surgery, ?? it may be that the prior surgery has occurred in the right breast and ?? not the left breast. Nonetheless, all additional imaging of the right ?? breast should occur with any scars found marked. ? No mammographic signs of malignancy left breast. ? ASSESSMENT: ? BI-RADS BI-RADS 0 - Incomplete: Needs additional Imaging. ? RECOMMENDATION: ?? 1. Additional views of the right breast ?? 2. Targeted ultrasound if warranted after review of the additional ?? views. ?? 3. Radiology department staff will contact the patient for additional ?? imaging. ? Additional Imaging required ? This examination should not preclude the clinical evaluation of a ?? suspicious palpable abnormality. ? This patient's information was entered into a reminder system with a ?? target due date for their next mammogram. ? Dictated By: ?Lindsay Contreras MD ? Signed By: ?<Electronically signed by Lindsay Contreras MD in OV> ? 02/05/24 0605 ? DD/ 1050 ? TD/TT: ? Labor Contractor: ? Procedure Note Ernestinacezar, Image - 02/05/2024 [place] [facility] [address] [place] [address] Mammography Report Signed Patient: Logan Madison#: [id number] : 1980Acct:[id number] Age/Sex: 43 / FADM Date: 01/24/24 Loc: JETT Attending Dr: Eleazar Cee MD Ordering Physician: Eleazar Ceeesults: 0Incomplet e: Needs Additional Imaging Evaluation Date of Service: 01/24/24Follow Up: Additional Imagi ng Procedure(s): MM tomosynthesis screening BI Accession Number(s): [id number] cc: Eleazar Cee MD EXAMINATION: MM SCREENING DIGITAL BREAST TOMOSYNTHESIS, BILATERAL CLINICAL INFORMATION: Screening. Asymptomatic. The patient reports a benign left excisional biopsy to place 2010. COMPARISON: Mammography: This study is compared with prior exams dating back to 2019. TECHNIQUE: Digital breast tomosynthesis is performed in both the craniocaudal and mediolateral oblique views along with computer-aided detection (CAD). Synthesized 2D images are generated from the tomosynthesis. FINDINGS: The breasts are extremely dense, which lowers the sensitivity of mammography (ACR BI-RADS breast composition Category d). In the superior aspect of the left breast, at a middle depth, there is an asymmetry which warrants additional mammographic and targeted sonographic imaging. When the patient returns for the additional mammographic imaging, skin of the right breast should be closely inspected from the scars. The patient does give a history of contralateral left breast surgery, it may be that the prior surgery has occurred in the right breast and not the left breast. In the left breast, there are no significant masses, abnormal calcifications, or other abnormalities. MM/MM tomosynthesis screening BI IMPRESSION: Asymmetry of the right breast warrants additional mammographic and targeted sonographic evaluation. When the patient returns for the additional mammographic imaging, skin of the right breast should be closely inspected from the scars. The patient does give a history of contralateral left breast surgery, it may be that the prior surgery has occurred in the right breast and not the left breast. Nonetheless, all additional imaging of the right breast should occur with any scars found marked. No mammographic signs of malignancy left breast. ASSESSMENT: BI-RADS BI-RADS 0 - Incomplete: Needs additional Imaging. RECOMMENDATION: 1. Additional views of the right breast 2. Targeted ultrasound if warranted after review of the additional views. 3. Radiology department staff will contact the patient for additional imaging. Additional Imaging required This examination should not preclude the clinical evaluation of a suspicious palpable abnormality. This patient's information was entered into a reminder system with a target due date for their next mammogram. Dictated By: Lindsay Contreras MD Signed By: <Electronically signed by Lindsay Contreras MD in OV> 02/05/24 0605 DD/ 1050 TD/TT: Labor Contractor: Eleazar Jaye AQUINO BI PROCEDURES Final Result from Last 3 Months or Most Recently Relevant to Health Maintenance Insurance , [address] [address] Care Teams Doctor Of Chiropractic Relationship Specialty Start Date End Date Name, MD Eleazar [address] [place] [phone] PCP - General Family Medicine 11/24/18
--- OUTSIDE RECORDS SUMMARY | 2025-01-28 11:12 | XMS_ITS | Encounter Summary ---
Author Organization [employer] Address [address] [place] [address] 7 [place] [address] Care Team Providers Care Residential Mortgage Underwriter Name Role Phone Name, Eleazar LEON Primary Care Provider [phone] Encounter Details Date Type Department Care Team (Late Contact Info) Description 04/22/2023 Orders Only [facility] [address] [place], [place] [phone] Talia Chandra LPN Social History Tobacco Use Types Packs/Day Years [...] Upcoming Encounters Date Type Department Care Team ([facility] Contact Info) Description 01/28/2025 11:15 AM EST Office Visit [facility] [address] [place] [address] [phone] NameEleazar MD [address] [place] [address] Arrived 03/07/2025 9:15 AM EDT Office Visit [facility] [address] [place], [place] [phone] Dinora Blandon CNM [address] [place] [address] documented as of this encounter Visit Diagnoses Not on filedocumented in this encounter Additional Health Concerns Assessment Noted Time PHQ-9 Depression Total Score: 5 03/31/20 23 11:26 AM EDT documented as of this encounter Care Teams Residential Mortgage Underwriter Relationship Specialty Start Date End Date Name, MD Eleazar [address] [place] [phone] PCP - General Family Medicine 11/24/18 documented as of this encounter
--- OUTSIDE RECORDS SUMMARY | 2025-01-28 11:12 | XMS_ITS | Encounter Summary ---
Author Organization [employer] Address [address] [place] [address] 7 [place] [address] Care Team Providers Care Access Database Developer Name Role Phone Name, Eleazar LEON Primary Care Provider [phone] Reason for Visit * Reason Onset Date Comments Call Back Request 02/17/2024 Encounter Details Date Type Department Care Team ([facility] st Contact Info) Description 02/17/2024 Telephone [facility] [address] [place] [address] [phone] Name, MD Eleazar [address] [place] [address] Call Back Request Social History Tobacco Use Types Packs/Day Years [...] encounter Miscellaneous Notes * Telephone Encounter - Aminah Burns - 02/17/2024 9:44 AM EDT Tc from pt requesting to speak with a nurse in regards to pelvic exam scheduled for tomorrow (02/17). Pt is on menstrual cycle and would like to know if appointment will need to be rescheduled. Please contact pt at [phone] documented in this encounter Plan of Treatment Upcoming Encounters Date Type Department Care Team (Late st Contact Info) Description 01/28/2025 11:15 AM EST Office Visit [facility] [address] [place] [phone] Eleazar Cee MD [address] [place] [phone] Arrived 03/07/2025 9:15 AM EDT Office Visit [facility] [address] [place] [phone] Dinora Blandon CNM [address] [place] [phone] documented as of this encounter Visit Diagnoses Not on filedocumented in this encounter Additional Health Concerns Assessment Noted Time PHQ-9 Depression Total Score: 5 03/31/20 23 11:26 AM EDT documented as of this encounter Care Teams Access Database Developer Relationship Specialty Start Date End Date Eleazar Cee MD [address] [place] [phone] PCP - General Family Medicine 11/24/18 documented as of this encounter
--- OUTSIDE RECORDS SUMMARY | 2025-01-28 11:12 | XMS_ITS | Encounter Summary ---
Author Organization [employer] Address [address] [place] [address] 7 [place] [address] Care Team Providers Care Environmental Coordinator Name Role Phone Name, Eleazar LEON Primary Care Provider [phone] Reason for Visit * Reason Onset Date Comments Call Back Request 09/24/2023 Encounter Details Date Type Department Care Team ([facility] st Contact Info) Description 09/24/2023 Telephone [facility] MEDICINE [address] [place] [address] [phone] Name, MD Eleazar [address] [place] [address] Call Back Request Social History Tobacco Use [...] encounter Miscellaneous Notes * Telephone Encounter - Bubba Zaman RN - 09/29/2023 9:27 AM EST T/C to [facility] pharmacy for below message, Pharmacist is asking for Which part of body pt. Has to apply. Where pt. Is going to apply? Due to insurance purpose. Please review and advise. * Telephone Encounter - Bubba Zaman RN - 09/26/2023 3:58 PM EDT T/C to Pharmacy for below message, pharmacy wants to know how many times pt. Has to apply Hydrocortisone 2.5 % cream. Please review and advise. * Telephone Encounter - Natalia Mcgraw - 09/26/2023 12:37 PM EDT Tc from Pharmacy requesting a call back in regards where and how many times... * Telephone Encounter - Bubba Zaman RN - 09/24/2023 1:56 PM EDT T/C to Pharmacy for below message, pharmacy wants to know how many times pt. Has to apply. Please review and advise. * Telephone Encounter - Natalia Mcgraw - 09/24/2023 11:07 AM EDT Tc from Pharmacy requesting a call back in regards clarification on use/dose on hydrocortisone 2.5 % cream Please call Pharmacy documented in this encounter Plan of Treatment Upcoming Encounters Date Type Department Care Team (Late st Contact Info) Description 01/28/2025 11:15 AM EST Office Visit [address] [address] Name, MD Eleazar [address] [place] [address] Arrived 03/07/2025 9:15 AM EDT Office Visit [address] [address] Dinora Blandon CNM [address] [place] [address] documented as of this encounter Visit Diagnoses Not on filedocumented in this encounter Additional Health Concerns Assessment Noted Time PHQ-9 Depression Total Score: 5 03/31/20 23 11:26 AM EDT documented as of this encounter Care Teams Environmental Coordinator Relationship Specialty Start Date End Date Name, MD Eleazar [address] [place] [address] PCP - General Family Medicine 11/24/18 documented as of this encounter
--- OUTSIDE RECORDS SUMMARY | 2025-01-28 11:13 | XMS_ITS | Encounter Summary ---
Author Organization [employer] Address [address] [place] [address] 7t [place] [address] Care Team Providers Care Diesel Powerplant Supervisor Name Role Phone Name, Eleazar LEON Primary Care Provider [phone] Encounter Details Date Type Department Care Team (Latest Contact Info) Description 01/21/2025 Travel Social History Tobacco Use Types Packs/Day Years Used Date Smoking Tobacco: Never Smokeless Tobacco: Never Comments:Fumo juliaka ocasional mente Alcohol Use Standard Drinks/Week Comments Not Currently [...] Description 01/28/2025 11:15 AM EST Office Visit [address] [address] NameEleazar MD [address] [place] [address] Arrived 03/07/2025 9:15 AM EDT Office Visit [address] [address] Dinora Blandon CNM [address] [place] [address] documented as of this encounter Visit Diagnoses Not on filedocumented in this encounter Additional Health Concerns Assessment Noted Time PHQ-9 Depression Total Score: 12 024 11:27 AM EDT documented as of this encounter Care Teams Diesel Powerplant Supervisor Relationship Specialty Start Date End Date Eleazar Cee MD [address] [place] [address] PCP - General Family Medicine 11/24/18 documented as of this encounter
--- OUTSIDE RECORDS SUMMARY | 2025-01-28 11:13 | XMS_ITS | Encounter Summary ---
Author Organization [employer] Address [address] [place] [address] 7t [place] [address] Care Team Providers Care Hooker Inspector Name Role Phone Name, Eleazar LEON Primary Care Provider [phone] Encounter Details Date Type Department Care Team (Latest Contact Info) Description 01/28/2025 Travel Social History Tobacco Use Types Packs/Day Years Used Date Smoking Tobacco: Never Smokeless Tobacco: Never Comments:Fumo huka ocasional mente Alcohol Use Standard Drinks/Week Comments [...] Description 01/28/2025 11:15 AM EST Office Visit [address] [address] NameEleazar MD [address] [place] [address] Arrived 03/07/2025 9:15 AM EDT Office Visit [address] [address] Dinora Blandon CNM [address] [place] [address] documented as of this encounter Visit Diagnoses Not on filedocumented in this encounter Additional Health Concerns Assessment Noted Time PHQ-9 Depression Total Score: 12 024 11:27 AM EDT documented as of this encounter Care Teams Hooker Inspector Relationship Specialty Start Date End Date Eleazar Cee MD [address] [place] [address] PCP - General Family Medicine 11/24/18 documented as of this encounter
--- OUTSIDE RECORDS SUMMARY | 2025-01-28 11:13 | XMS_ITS | Encounter Summary ---
Author Organization [employer] Address [address] [place] [address] 7t [place] [address] Care Team Providers Care Health Promotion Coordinator Name Role Phone Name, Eleazar LEON Primary Care Provider [phone] Encounter Details Date Type Department Care Team (Latest Contact Info) Description 01/06/2025 Travel Social History Tobacco Use Types Packs/Day [...] Description 01/28/2025 11:15 AM EST Office Visit [address] [address] NameEleazar MD [address] [place] [address] Arrived 03/07/2025 9:15 AM EDT Office Visit [address] [address] Dinora Blandon CNM [address] [place] [address] documented as of this encounter Visit Diagnoses Not on filedocumented in this encounter Additional Health Concerns Assessment Noted Time PHQ-9 Depression Total Score: 12 024 11:27 AM EDT documented as of this encounter Care Teams Health Promotion Coordinator Relationship Specialty Start Date End Date Eleazar Cee MD [address] [place] [address] PCP - General Family Medicine 11/24/18 documented as of this encounter
== END 2025-01-28 10:04 | disposition home or self-care (01) ==
LOC: HO.MAMMO 10:03
PROVIDERS: PCP Internal Medicine Geriatric Medicine; Visit Provider Internal Medicine Geriatric Medicine
DX: Z12.31 Encounter for screening mammogram for malignant neoplasm of breast (principal)
CPT/HCPCS: 77063; 77067

== ENCOUNTER 2025-04-01 13:27 | Outpatient (REF) | payer OTHER, SELFPAY ==
--- NOTE | ~2025-04-01 | US_ITS ---
CLINICAL HISTORY: fibroid Transabdominal and transvaginal pelvic ultrasound Comparison: No prior studies sent for comparison Findings: Uterus 10.2 x 4.1 x 5.4 cm. Endometrium 1.2 cm. 4.0 x 4.3 cm fundal fibroid. No significant free fluid. Right ovary 3.6 x 2.8 x 2.2 cm. Single unmeasured dominant follicle. Left ovary 3.0 x 2.0 x 1.5 cm. No significant focal abnormality. Impression: Fundal fibroid, otherwise unremarkable This document has been electronically signed by: Panchito Briggs MD on 04/04/2025 19:43:16
--- OUTSIDE RECORDS SUMMARY | 2025-04-01 13:30 | XMS_ITS | Encounter Summary ---
Author Organization [employer] Address [address] [place] [address] [place] [address] Care Team Providers Care Banjo Repair Person Name Role Phone Name, Eleazar LEON Primary Care Provider [phone] Reason for Visit * Reason Onset Date Comments Call Back Request 09/24/2023 Encounter Details Date Type Department Care Team ([facility] st Contact Info) Description 09/24/2023 Telephone [facility] MEDICINE [address] [place] [address] [phone] Name, MD Eleazar [address] [place] [address] Call Back Request Social History Tobacco Use [...] - 09/29/2023 9:27 AM EST T/C to [facility] pharmacy for below message, Pharmacist is [...] and advise. * Telephone Encounter - Natalia Burrello - 09/24/2023 11:07 AM EDT Tc from Pharmacy requesting a call back in regards clarification on use/dose on hydrocortisone 2.5 % cream Please call Pharmacy documented in this encounter Plan of Treatment Upcoming Encounters Date Type Department Care Team (Late st Contact Info) Description 04/05/2025 11:00 AM EDT Clinical Support [facility] DIABETES/NUTRITION [address] [place] [address] [place] [address] 06/07/2025 10:45 AM EDT Office Visit [facility] MEDICINE [address] [place] [address] Name, MD Eleazar [address] [place] [address] documented as of this encounter Visit Diagnoses Not on filedocumented in this encounter Additional Health Concerns Assessment Noted Time PHQ-9 Depression Total Score: 5 03/31/20 23 11:26 AM EDT documented as of this encounter Care Teams Banjo Repair Person Relationship Specialty Start Date End Date NameEleazar MD [address] [place] [phone] PCP - General Family Medicine 11/24/18 documented as of this encounter
--- OUTSIDE RECORDS SUMMARY | 2025-04-01 13:30 | XMS_ITS | Encounter Summary ---
Author Organization [employer] Address [address] [place] [address] Care Team Providers Care Automotive Internet Sales Consultant Name Role Phone NameEleazar MD Primary Care Provider [phone] Encounter Details Date Type Department Care Team (Latest Contact Info) Description 12/30/2018 Abstract [facility] CONVERSIONS Dental, Provider, DDS Social History Tobacco [...] Care Team ( st Contact Info) Description 04/05/2025 11:00 AM EDT Clinical Support [facility] DIABETES/NUTRITION [address] [place] [address] [place] [address] 06/07/2025 10:45 AM EDT Office Visit [facility] MEDICINE [address] [place] [address] Eleazar Cee MD [address] [place] [address] documented as of this encounter Visit Diagnoses Not on filedocumented in this encounter Care Teams Automotive Internet Sales Consultant Relationship Specialty Start Date End Date NameEleazar MD [address] [place] [address] PCP - General Family Medicine 11/24/18 documented as of this encounter
--- OUTSIDE RECORDS SUMMARY | 2025-04-01 13:30 | XMS_ITS | Encounter Summary ---
Author Organization [employer] Address [address] [place] [address] 7 [place] [address] Care Team Providers Care Radiology Aide Name Role Phone Name, Eleazar LEON Primary Care Provider Encounter Details Date Type Department Care Team ([facility] Contact Info) Description 04/22/2023 Orders Only [facility] CHC MED & PEDS [address] [place] [address] Talia Chandra LPN Social History Tobacco Use [...] Upcoming Encounters Date Type Department Care Team ([facility] Contact Info) Description 04/05/2025 11:00 AM EDT Clinical Support [facility] DIABETES/NUTRITION [address] [place] [address] Rupa Allen, IRVIN [address] [place] [address] 06/07/2025 10:45 AM EDT Office Visit [facility] MEDICINE [address] [place] [address] Name, MD Eleazar [address] [place] [address] documented as of this encounter Visit Diagnoses Not on filedocumented in this encounter Additional Health Concerns Assessment Noted Time PHQ-9 Depression Total Score: 5 03/31/20 23 11:26 AM EDT documented as of this encounter Care Teams Radiology Aide Relationship Specialty Start Date End Date Name, MD Eleazar [address] [place] [address] PCP - General Family Medicine 11/24/18 documented as of this encounter
--- OUTSIDE RECORDS SUMMARY | 2025-04-01 13:30 | XMS_ITS | Encounter Summary ---
Author Organization [employer] Address [address] [place] [address] Care Team Providers Care Associate Director Regulatory Affairs Name Role Phone NameEleazar MD Primary Care Provider [phone] Encounter Details Date Type Department Care Team (Latest Contact Info) Description 01/03/2020 Abstract [facility] CONVERSIONS Dental, Provider, DDS Social History Tobacco [...] Description 04/05/2025 11:00 AM EDT Clinical Support [facility] DIABETES/NUTRITION [address] [place] [address] [place] [address] 06/07/2025 10:45 AM EDT Office Visit [facility] MEDICINE [address] [place] [address] Eleazar Cee MD [address] [place] [address] documented as of this encounter Visit Diagnoses Not on filedocumented in this encounter Care Teams Associate Director Regulatory Affairs Relationship Specialty Start Date End Date NameEleazar MD [address] [place] [address] PCP - General Family Medicine 11/24/18 documented as of this encounter
--- OUTSIDE RECORDS SUMMARY | 2025-04-01 13:30 | XMS_ITS | Clinical Summary ---
Author Organization [employer] Address [address] [place] [address] 7 [place] [address] Care Team Providers Care Petroleum Inspector Supervisor Name Role Phone Name, Eleazar LEON Primary Care Provider [phone] Allergies No known active allergies Medications * This document contains information received from the source organization and may not represent a complete record from that organization. cetirizine (ZyrTEC) 10 MG tablet Take 1 tablet (10 mg) by mouth in the morning. 30 tablet 11 4 Active omeprazole OTC (PriLOSEC OTC) 20 MG EC tablet Take 1 tablet (20 mg) by mouth before breakfast. Do not crush, chew, or split. 30 tablet 11 4 06/09/20 25 Active ciclopirox (Loprox) 0.77 % cream Apply topically 2 times daily. 90 g 1 5 Active Active Problems Problem Noted Date Diagnosed [...] in services for OP individual therapy with [facility]. Class 1 obesity 03/31/2023 Major depressive disorder 01/08/2023 Assessment & Plan (03/31/2024 1:02 PM EDT): During IBH Consult Logan presenting with depressed mood, loss of interests/pleasure , changes in sleep restless, unsatisfying sleep, change in appetite or weight overeating, psychomotor retardation, trouble concentrating, thoughts of worthlessness or guilt, fatigue/loss of energy, inappropriate guilt , hopelessness, worthlessness , difficulty concentrating; for a period of 24+ mo, in the context of family issues and relationship issues. Republic identified her long-term relationship as trigger for symptoms. Communication issues with significant other and lack of social supports also exacerbates symptoms. PLAN: (check all that apply) Continue with current services (defined as services in the past 12 months) . Pt will re-engaged with therapist and psych provider through [facility]. Pt was unhappy with previous therapist. [...] in services for OP individual therapy with [facility]. Insomnia 01/08/2023 Seasonal allergic rhinitis 05/07/2019 Irregular periods 05/07/2019 Resolved Problems Problem Noted Date Diagnosed Date Resolved Date Pain of breast 02/10/2019 01/08/2023 Encounters Date Type Department Care Team Description 03/18/2025 9:00 AM EDT Clinical Support [facility] DIABETES/[place] [address] Pre-diabetes (Primary Dx) 03/18/2025 Travel 03/17/2025 Travel 03/08/2025 9:30 AM EDT Nutrition [facility] DIABETES/[place] [address] Obesity (BMI 30-39.9); Pre-diabetes 03/08/2025 Travel 03/07/2025 9:15 AM EDT Office Visit [facility] [place] [address] Michael Willoughby CNM Visit for pelvic exam (Primary Dx); Fibroids; Dense breast tissue 03/07/2025 Travel 03/01/2025 Travel 02/22/2025 Telephone [facility] [place] [address] Eleazar Cee MD Results; Referral 02/22/2025 Orders Only [facility] [place] [address] Eleazar Cee MD Pre-diabetes (Primary Dx) 02/21/2025 Telephone [facility] [place] [address] Kanika Kwan MA may recalls 02/21/2025 Telephone [facility] [place] [address] Eleazar Cee MD Results 01/28/2025 11:15 AM EST Office Visit [facility] [place] [address] Eleazar Cee MD Obesity (BMI 30-39.9) (Primary Dx); Onychomycosis; Anxiety 01/28/2025 Orders Only [facility] [place] [address] Eleazar Cee MD 01/28/2025 Travel 01/21/2025 Travel 01/06/2025 Travel from Last 3 Months Immunizations Name Administration Dates Next Due Influenza injectable quadriv alent IIV4 with preservative 02/01/2020 Influenza injectable quadriv alent preservative free 09/11/2023,09/15/2021,08/24/2020,2018,02/22/2016 Tdap 12/08/2018 Family History Medical History Relation Name Comments Hypertension Brother Hero Hypertension Father Sterling Verdin Arthritis Mother Melva clancyando Asthma Mother Melva brittny Diabetes Mother Melva brittny Hypertension Mother Melva brittny Hypertension Sister Agustin Breast cancer Neg Hx Colon cancer Neg Hx Ovarian cancer Neg Hx Relation Name Status Comments Brother Hero Father Sterling Verdin Mother Melva dayo Sister Agustin Social History Tobacco Use Types Packs/Day Years Used Date Smoking Tobacco: Never Smokeless Tobacco: Never Tobacco Cessation:Counseling Given: Not Answered Comments:Fumo huka ocasionalmente Alcohol Use Standard Drinks/Week Comments Not Currently 0 (1 standard drink = 0.6 oz pur e alcohol) Social me johan un trago Depression Answer Date Recorded Patient Health Questionnaire-9 Score 11 01/28/2025 Patient Health Questionnaire-9 Score 11 01/28/2025 Last PHQ-9: Questionnaire Data Not on file 0 01/28/2025 Housing Stability Answer Date Recorded What is [...] Date Recorded Patient Health Questionnaire-2 Score 4 01/28/2025 Internet Access Answer Date Recorded Internet Access [...] Sign Reading Time Taken Comments Blood Pressure 122/87 03/07/2025 9:10 AM EDT Pulse 89 03/07/2025 9:10 AM EDT Temperature 36.4 ??C (97.5 ??F) 03/07/2025 9:10 AM ED T Respiratory Rate 16 03/07/2025 9:10 AM EDT Oxygen Saturation 99% 03/07/2025 9:10 AM EDT Inhaled Oxygen Concentration - - Weight 83.6 kg (184 lb 6.4 oz) 03/21/2025 12:08 PM EDT Height 165.1 cm (5' 5 ) 03/21/2025 12:08 PM EDT Body Mass Index 30.69 03/21/2025 12:08 PM EDT Plan of Treatment Upcoming Encounters Date Type Department Care Team (Late st Contact Info) Description 04/05/2025 11:00 AM EDT Clinical Support [facility] DIABETES/NUTRITION [address] [place] [address] [place] [address] 06/07/2025 10:45 AM EDT Office Visit [facility] MEDICINE [address] [place] [address] Name, MD Eleazar [address] [place] [address] Health Maintenance Due Date Last Done Comments HIV Screening 1982 Hepatitis C Screening 2000 Hepatitis B Vaccines (1 of 3 - 19+ 3-dose series) 2001 COVID-19 Vaccine ( season) 2024 01/04/2022, 03/09/2021, 02/09/2021 Alcohol/Substance Use Screening 06/23/2025 06/23/2024 SDOH Screening 06/23/2025 06/23/2024 Depression Screening 01/28/2026 01/28/2025, 01/29/20 25 Family Planning (PISQ) 03/07/2026 03/07/2025 Tobacco Screening 03/07/2026 03/07/2025 Lipid Panel 01/03/2027 01/03/2022 Mammogram 01/28/2027 01/28/2025, 03/0 12/2023, 12/17/2022, Additional history exists Cervical Cancer Screening [...] Procedure Name Priority Date/Time Associated Diagnosis Comments BI MAMMOGRAM SCREENING TOMOSYNTHESIS BILATERAL Routine 01/28/2025 10:06 AM EST HPV MRNA E6/E7 REFLEX TO HPV 16, 18/45 Routine 03/04/2024 2:03 PM EDT PAP SMEAR Routine 03/04/2024 2:03 PM EDT Cervical cancer screening LIPID PANEL, STANDARD Routine 01/03/2022 10:10 AM EST from Last 3 Months or Most Recently Relevant to Health Maintenance Results * BI Mammogram Screening Tomosynthesis Bilateral (01/28/2025 10:06 AM EST) Anatomical Region Laterality Modality Breast Bilateral Mammography 01/28/2025 10:0 6 AM EST Narrative 02/06/2025 5:07 PM EDT ? [facility] ? [address] ?[place] [address] ? Mammography Report ? Signed ? Patient: Verdin Brittny,Republic ?MR#: ?? [id number] ? : 1980 ?Acct:[id number] ? Age/Sex: 44 / F ?ADM Date: //25 ? Loc: HO.MAMMO ? Attending Dr: Eleazar Name MD ? Ordering Physician: Name,Eleazar MD ?Results: 1Negative ? Date of Service: /07/25 ?Follow Up: 1 Year From Orig ?? inal Mammogram ? Procedure(s): MM tomosynthesis screening BI ?? Accession Number(s): [id number] ? cc: Name,Eleazar LEON ? EXAMINATION: ?? MM SCREENING DIGITAL BREAST TOMOSYNTHESIS, BILATERAL ? CLINICAL INFORMATION: ? Screening. Asymptomatic. ? COMPARISON: ?? Mammography: Comparison is made with available priors ? TECHNIQUE: ?? Digital breast mammography with tomosynthesis is performed in both the ?? craniocaudal and mediolateral oblique views along with computer-aided ?? detection (CAD). ? FINDINGS: ?? The breasts are extremely dense, which lowers the sensitivity of ?? mammography (ACR BI-RADS breast composition Category d). ? There are no significant masses, abnormal calcifications, or other ?? abnormalities. ? MM/MM tomosynthesis screening BI ?? IMPRESSION: ?? No mammographic evidence of malignancy. ? ASSESSMENT: ? BI-RADS BI-RADS 1 - Negative ? RECOMMENDATION: ?? Routine annual mammography screening. ? 1 year F/U ? This examination should not preclude the clinical evaluation of a ?? suspicious palpable abnormality. ? This patient's information was entered into a reminder system with a ?? target due date for their next mammogram. ? Electronically signed by: ??Dominique Vaca DO ??02/06/2025 05:04 PM EDT ? Dictated By: ?Dominique Vaca DO ? Signed By: ?<Electronically signed by Dominique Vaca, DO in OV> ? 02/06/25 1704 ? DD/ 1006 ? TD/TT: 01/28/25 1036 ? Fisher Spear: ? Procedure Note Eulogio, Minna - 02/06/2025 [facility] [address] [place] [address] Dr. Martel, JENNIFER [address] Mammography Report Signed Patient: Logan MadisonMR#: [id number] : 1980Acct:[id number] Age/Sex: 44 / FADM Date: 01/28/25 Loc: HO.MAMMO Attending Dr: Eleazar Cee MD Ordering Physician: Eleazar Cee MDResults: 1Negative Date of Service: 01/28/25Follow Up: 1 Year From Orig inal Mammogram Procedure(s): MM tomosynthesis screening BI Accession Number(s): [id number] cc: Eleazar Cee MD EXAMINATION: MM SCREENING DIGITAL BREAST TOMOSYNTHESIS, BILATERAL CLINICAL INFORMATION: Screening. Asymptomatic. COMPARISON: Mammography: Comparison is made with available priors TECHNIQUE: Digital breast mammography with tomosynthesis is performed in both the craniocaudal and mediolateral oblique views along with computer-aided detection (CAD). FINDINGS: The breasts are extremely dense, which lowers the sensitivity of mammography (ACR BI-RADS breast composition Category d). There are no significant masses, abnormal calcifications, or other abnormalities. MM/MM tomosynthesis screening BI IMPRESSION: No mammographic evidence of malignancy. ASSESSMENT: BI-RADS BI-RADS 1 - Negative RECOMMENDATION: Routine annual mammography screening. 1 year F/U This examination should not preclude the clinical evaluation of a suspicious palpable abnormality. This patient's information was entered into a reminder system with a target due date for their next mammogram. Electronically signed by: Dominique Vaca DO 02/06/2025 05:04 PM EDT Dictated By: Dominique Vaca DO Signed By: <Electronically signed by Dominique Vaca DO in OV> 02/06/25 1704 DD/ 1006 TD/TT: 01/28/25 1036 Fisher Spear: Eleazar Cee MD [facility] BI PROCEDURES Final Result * HPV mRNA E6/E7 w/Reflex to HPV Genotypes 16, 18/45 (03/04/2024 2:03 PM EDT) HPV nRNA E6/E7 Not Detected Not Detected [facility] Comment:Methodology: Transcr iption-Mediated AmplificationThis assay detects E6/E7 viral messenger RNA (mRNA) from 14high-risk HPV types (16,18,31,33,35,39,45,51,52,56,58,59,66,68).Cervical sources are required for HPV testing.If a vaginal source from a patient who has had atotal hysterectomy with removal of cervix wassubmitted, please contact the testing laboratoryfor alternative testing options.For additional information, please refer tohttp://education.Bringme/faq/VHD419f5(This link if provided for information/educational purposes only.)THIS TEST WAS PERFORMED AT:[facility] [place] [id number] RAWLS MD HPV mRNA E6/E7 TNP [facility] HPV 16 [facility] HPV 18/45 [facility] 03/04/2024 2:03 PM EDT 03/09/2024 12:00 PM EDT us Michael Willoughby [facility] CYTOLOGY ORDERABLES F inal Result [facility] [address] [place] [address] [phone] * Pap Smear (03/04/2024 2:03 PM EDT) Swab Cervix uteri structure / Unknown 03/04/2024 2:03 PM EDT 03/09/2024 12:00 PM EDT Narrative [facility] - 03/22/2024 12:50 PM EDT ----- ------- Name: Logan Madison ? Age/Sex: 43/F ? : 1980 Unit#: [id number] ?? Attend Dr: MICHAEL WILLOUGHBY CNM ?Re03/04/24 ?Status: DEP REF ? Location: HO.LNP ?Disch: ? ----- ------- SPEC : [id number] ? RECD: 03/09/24-1200 ? STATUS: ??SOUT ? REQ NUM: [id number] ? VIKTOR: 03/04/24-1403 ? SUBM DR: MICHAEL WILLOUGHBY CNM ? ENTERED: ??03/09/24-1244 ?SP TYPE: Pap Smr ?OTHR DR: ? ORDERED: ??Pap Smear ? Interpretation ?? Satisfactory for evaluation. ?? Negative for intraepithelial lesion or malignancy. ?HPV mRNA E6/E7: ?NOT DETECTED ? This assay detects E6/E7 viral messenger RNA (mRNA) from 14 high-risk HPV types (16, 18, ?? 31, 33, 35, 39, 45, 51, 52, 56, 58, 59, 66, 68) ?? HPV testing performed by [employer], [place], [place]. ??See reference laboratory ?? portion of the EMR for entire report. ?Clinical Information LMP: Unknown date Previous PAP test: Unknown date, Abnormal Other history: NIL/neg preceded by NIL/HPV pos ? Material Received ?? ThinPrep-Vaginal/Cervical ----- ------- Signed (signature on file) BRIAN Sanchez (ASCP) 03/22/24 1250 ? ----- ------- ? END OF REPORT ? us Michael Willoughby [facility] CYTOLOGY ORDERABLES F inal Result [facility] [address] [place] [address] [phone] * (ABNORMAL) LIPID PANEL, STANDARD (01/03/2022 10:10 AM EST) Chol/HDLC Ratio 2.7 <5.0 (calc) [facility] Cholesterol, Total 204(H) <200 mg/dL [facility] HDL Cholesterol 76 > OR = 50 mg/dL [facility] LDL Cholesterol 113(H) mg/dL (calc) [facility] Comment: Reference range: <100 ?? Desirable range <100 mg/dL for primary prevention; ?? <70 mg/dL for patients with CHD or diabetic patients ?? with > or = 2 CHD risk factors. ?? LDL-C is now calculated using the Jenni ?? calculation, which is a validated novel method providing ?? better accuracy than the Friedewald equation in the ?? estimation of LDL-C. ?? Alexys VEGA et al. FRANKY. 2013;310(19): 6973-6917 ?? (http://education.Acrisure/faq/WZW447) Non-HDL Cholesterol 128 <130 mg/dL (calc) [facility] Comment: For patients with diabetes plus 1 major ASCVD risk ?? factor, treating to a non-HDL-C goal of <100 mg/dL ?? (LDL-C of <70 mg/dL) is considered a therapeutic ?? option. Triglycerides 60 <150 mg/dL [facility] 01/03/2022 10:1 0 AM EST us Eleazar Cee MD LAB BLOOD ORDERABLES Final Resul t [facility] [address] from Last 3 Months or Most Recently Relevant to Health Maintenance Insurance Care Teams Petroleum Inspector Supervisor Relationship Specialty Start Date End Date Name, MD Eleazar [address] [place] [address] PCP - General Family Medicine 11/24/18
--- OUTSIDE RECORDS SUMMARY | 2025-04-01 13:30 | XMS_ITS | Encounter Summary ---
Author Organization [employer] Address [address] [facility] 7 [place] [address] Care Team Providers Care Claims Associate Name Role Phone Name, Eleazar LEON Primary Care Provider [phone] Encounter Details Date Type Department Care Team ([facility] st Contact Info) Description 09/26/2023 Orders Only [facility] CHC MED & PEDS [address] [place], [place] [phone] Cny Ugarte FNP [address] [place] [address] Social History Tobacco Use Types Packs/Day Years [...] Clinical Support [facility] DIABETES/NUTRITION [address] [place] [address] [place] [address] 06/07/2025 10:45 AM EDT Office Visit [facility] MEDICINE [address] [place] [phone] Name, MD Eleazar [address] [place] [address] documented as of this encounter Visit Diagnoses Not on filedocumented in this encounter Additional Health Concerns Assessment Noted Time PHQ-9 Depression Total Score: 5 03/31/20 23 11:26 AM EDT documented as of this encounter Care Teams Claims Associate Relationship Specialty Start Date End Date Name, MD Eleazar [address] [place] [address] PCP - General Family Medicine 11/24/18 documented as of this encounter
--- OUTSIDE RECORDS SUMMARY | 2025-04-01 13:30 | XMS_ITS | Encounter Summary ---
Author Organization [employer] Address [address] [place] [address] [place] [address] Care Team Providers Care Sow Manager Name Role Phone Name, Eleazar LEON Primary Care Provider [phone] Reason for Visit * Reason Onset Date Comments Call Back Request 02/17/2024 Encounter Details Date Type Department Care Team ([facility] st Contact Info) Description 02/17/2024 Telephone [facility] MEDICINE [address] [place] [address] [phone] Name, MD Eleazar [address] [place] [address] Call Back Request Social History Tobacco Use [...] to be rescheduled. Please contact pt at [phone] documented in this encounter Plan of Treatment Upcoming Encounters Date Type Department Care Team (Late st Contact Info) Description 04/05/2025 11:00 AM EDT Clinical Support [facility] DIABETES/NUTRITION [address] [place] [address], [address] [place] [address] 06/07/2025 10:45 AM EDT Office Visit [facility] MEDICINE [address] [place] [phone] NameEleazar MD [address] [place] [address] documented as of this encounter Visit Diagnoses Not on filedocumented in this encounter Additional Health Concerns Assessment Noted Time PHQ-9 Depression Total Score: 5 03/31/20 23 11:26 AM EDT documented as of this encounter Care Teams Sow Manager Relationship Specialty Start Date End Date NameEleazar MD [address] [place] [address] PCP - General Family Medicine 11/24/18 documented as of this encounter
--- OUTSIDE RECORDS SUMMARY | 2025-04-01 13:30 | XMS_ITS | Encounter Summary ---
Author Organization [employer] Address [address] [place] [address] Care Team Providers Care Patient Centered Care Specialist Name Role Phone Name, Eleazar LEON Primary Care Provider [phone] Reason for Visit * Reason Onset Date Comments Medication Question 03/31/2023 Encounter Details Date Type Department Care Team ([facility] st Contact Info) Description 03/31/2023 Telephone [facility] MEDICINE [address] [place] [address] [phone] Name, MD Eleazar [address] [place] [address] Medication Question Social History Tobacco Use Types [...] change to 28-0.8mg. * Telephone Encounter - Kennethtiara Ady Miller - 03/31/2023 11:49 AM EDT Tc from [facility] requesting a call to verify if medication ( multivitamin () 27-0.8 MG tablet ) can be switched to 28-0.8 mg due to pharmacy not having the 27-0.8 mg script previously sent over. Please contact Pharmacy at [phone] documented in this encounter Plan of Treatment Upcoming Encounters Date Type Department Care Team (Late st Contact Info) Description 04/05/2025 11:00 AM EDT Clinical Support [facility] DIABETES/NUTRITION [address] [place] [address] [address]upa Allen, IRVIN [address] [place] [address] 06/07/2025 10:45 AM EDT Office Visit [facility] MEDICINE [address] [place] [phone] NameEleazar MD [address] [place] [phone] documented as of this encounter Visit Diagnoses Not on filedocumented in this encounter Additional Health Concerns Assessment Noted Time PHQ-9 Depression Total Score: 5 03/31/20 23 11:26 AM EDT documented as of this encounter Care Teams Patient Centered Care Specialist Relationship Specialty Start Date End Date NameEleazar MD [address] [place] [phone] PCP - General Family Medicine 11/24/18 documented as of this encounter
== END 2025-04-01 13:28 | disposition home or self-care (01) ==
LOC: HO.US 13:27
PROVIDERS: PCP Internal Medicine Geriatric Medicine; Visit Provider Advanced Practice Midwife
DX: D21.9 Benign neoplasm of connective and other soft tissue, unspecified (principal)
CPT/HCPCS: 76830; 76856

== ENCOUNTER → 2025-04-01 13:31 | Outpatient (BNV) | payer OTHER, SELFPAY | PROVIDERS: PCP Internal Medicine Geriatric Medicine; Visit Provider Radiology Diagnostic Radiology | DX: D25.1 Intramural leiomyoma of uterus (principal) | CPT/HCPCS: 76830; 76856 ==

== ENCOUNTER 2025-06-23 10:23 | Outpatient (REF) | payer OTHER, SELFPAY ==
--- OUTSIDE RECORDS SUMMARY | 2025-06-23 11:05 | XMS_ITS | Encounter Summary ---
Author Organization [employer] Address [address] [place] [address] Care Team Providers Care Vest Maker Name Role Phone Name, Eleazar LEON Primary Care Provider Encounter Details Date Type Department Care Team (Latest Contact Info) Description 12/30/2018 Abstract [facility] CONVERSIONS Dental, Provider, DDS Social History [...] Care Team (Late st Contact Info) Description 08/22/2025 2:30 PM EDT Office Visit [facility] MEDICINE [address] [place] [address] Eleazar Cee MD [address] [place] [address] documented as of this encounter Visit Diagnoses Not on filedocumented in this encounter Care Teams Vest Maker Relationship Specialty Start Date End Date Eleazar Cee MD [address] [place] [address] PCP - General Family Medicine 11/24/18 documented as of this encounter
[2025-06-23 11:06] LABS: MANUAL DIFF FLAG NO
[2025-06-23 11:23] LABS: Hematocrit 36.6 % (37.0-47.0); Hemoglobin 12.0 g/dl (12.0-16.0); Imm Gran Abs Auto 0.01 X10*3/uL (0.00-0.03); Imm Gran Pct Auto 0.2 % (0.0-0.4); Lymphocytes Absolute Auto 2.1 X10*3/uL (1.2-4.9); Mean Corpuscular HGB Conc 32.8 g/dl (31.0-35.0); Mean Corpuscular Hemoglobin 27.3 pg (27.0-33.0); Mean Corpuscular Volume 83.2 fL (80.0-98.0); NRBC Abs Auto 0.000 X10*3/uL (0.0-0.012); NRBC Pct Auto 0.0 /100WBC (0.0-0.2); Platelet Count 239 X10*3/uL (160-400); Red Blood Count 4.40 X10*6/uL (4.20-5.50); White Blood Count 5.7 X10*3/uL (4.8-10.8)
[2025-06-23 11:24] LABS: Hematocrit 37.0 % (37.0-47.0); Hemoglobin 12.1 g/dl (12.0-16.0); Imm Gran Abs Auto 0.02 X10*3/uL (0.00-0.03); Imm Gran Pct Auto 0.3 % (0.0-0.4); Lymphocytes Absolute Auto 2.2 X10*3/uL (1.2-4.9); Mean Corpuscular HGB Conc 32.7 g/dl (31.0-35.0); Mean Corpuscular Hemoglobin 27.3 pg (27.0-33.0); Mean Corpuscular Volume 83.5 fL (80.0-98.0); NRBC Abs Auto 0.000 X10*3/uL (0.0-0.012); NRBC Pct Auto 0.0 /100WBC (0.0-0.2); Platelet Count 244 X10*3/uL (160-400); Red Blood Count 4.43 X10*6/uL (4.20-5.50); White Blood Count 5.8 X10*3/uL (4.8-10.8)
[2025-06-23 11:32] LABS: Hemoglobin A1C 119.3166 umol/L; Total Hemoglobin (HGBA1C) 3185.7020 umol/L
[2025-06-23 12:10] LABS: Alanine Aminotransferase 19 U/L (0-31); Albumin Level 4.3 g/dL (3.5-5.0); Alkaline Phosphatase 54 U/L (39-117); Anion Gap 10 (12-20); Aspartate Amino Transferase 17 U/L (5-31); Blood Urea Nitrogen 12 mg/dL (9-16); Calcium 8.7 mg/dL (8.4-10.2); Carbon Dioxide 27 mmol/L (22-29); Chloride 105 mmol/L (96-108); Cholesterol 188 mg/dL (<200); Estimated Glomerular Filt Rate > 60; HDL Cholesterol 54 mg/dL (>40); Potassium 4.0 mmol/L (3.3-5.1); Sodium 138 mmol/L (135-145); Total Protein 7.0 g/dL (6.5-8.0); Triglycerides 77 mg/dL (<150)
[2025-06-23 12:27] LABS: HBS Num1 0.77 mIU/mL (0-7.99); HBc Num1 0.22 S/CO (0.00-0.79); HBsAGNum1 0.41 S/CO (0.00-0.99); HIV Num 1 0.07 S/CO (0.00-0.99); Hepatitis B Surface Antigen Negative (Negative); ~HepC Num1 0.17 S/CO (0.00-0.79); ~Hepatitis B Surface Antibody NONREACTIVE (Nonreactive); ~Hepatitis C Antibody Nonreactive (Nonreactive)
[2025-06-23 12:32] LABS: Vitamin B12 1328 pg/mL (200-900)
== END 2025-06-23 10:24 | disposition home or self-care (01) ==
LOC: HO.HHCL 10:23
PROVIDERS: Family Medicine; PCP Internal Medicine Geriatric Medicine; Visit Provider Emergency Medicine
DX: R42 Dizziness and giddiness (principal); R03.0 Elevated blood-pressure reading, without diagnosis of hypertension; Z11.3 Encounter for screening for infections with a predominantly sexual mode of transmission; Z11.59 Encounter for screening for other viral diseases; Z11.4 Encounter for screening for human immunodeficiency virus [HIV]
CPT/HCPCS: 36415; 80053; 80061; 82607; 83036; 85025; 86592; 86704; 86706; 86803; 87340; 87389